=== PATIENT | female | born 1970 | race Caucasian/White ===

== ENCOUNTER 2023-10-08 18:48 | Emergency (ER) | payer OTHER, SELFPAY ==
[2023-10-08 18:50] VITALS: BP 155/91; PULSE 100; RESP 20; TEMP 36.6; O2SAT 99
--- NOTE | 2023-10-08 19:04 | PC.NURSE ---
On 10/08/23, the student, Rowena Shah, provided care and completed [facility] documentation on this patient. I have reviewed the student's documentation and agree with the findings.
[2023-10-08] MEDS: KETOROLAC (*BKC) 60 MG/2 ML VIAL IM (19:30)
--- NOTE | 2023-10-08 20:01 | PC.NURSE ---
Pt ambulated to nursing station, stating that she needs to leave due to a family emergency and will check back in later. Pt ambulatory out of department
--- NOTE | 2023-10-08 20:10 | ED.UPPEXIN ---
HPI - Extremity Injury (Upper) General Chief Complaint: Extremity Injury, Upper Stated Complaint: R & l wrist injury Time Seen by Provider: 10/08/23 19:10 Source: patient Mode of arrival: ambulatory Limitations: no limitations History of Present Illness HPI narrative: This is a 52-year-old female who presents after she had a fall on her outstretched hands and causing pain in her bilateral wrists and right shoulder and clavicle. No other injuries no loss of consciousness no other neurological deficits. complaint: injury to: left, right and shoulder Onset (ago): hour(s) Other injuries: none Handedness: right Severity: moderate Severity scale (1-10): 6 Context: fall Related Data Home Medications Medication Instructions Recorded Confirmed Unable to Obtain Home Medications 10/08/23 10/08/23 Allergies Allergy/AdvReac Type Severity Reaction Status Date / Time meperidine Allergy Mild Hives / Verified 10/08/23 19:01 Red Face acetaminophen AdvReac Intermediate HIVES IV Verified 10/08/23 19:01 ONLY oxycodone AdvReac Intermediate HIVES IV Verified 10/08/23 19:01 ONLY Review of Systems Review of Systems: All systems reviewed & are unremarkable except as noted in HPI and below PMFSH Past Medical History Medical History Patient denies medical problems Exam Const: General: healthy appearing and no acute distress Nutritional Appearance: well nourished Orientation/consciousness: patient oriented x3 Limitations: no limitations Neck: Neck: normal visual inspection, no lymphadenopathy and no meningeal signs Chest: Chest palpation & inspection: normal inspection of the chest Resp: Effort & Inspection: normal respiratory effort Auscultation: clear to auscultation bilaterally Cardio: Rate: regular rate Rhythm: regular rhythm GI: GI Palp: Yes Soft to palpation Skin: General skin exam: normal color Rashes: no rashes Wounds: no wounds Neuro: General: patient oriented x3 and moves all extremities Cranial nerves: Yes Nystagmus not present Extrem: Other: bilateral wrist pain with movement and palpation along with right shoulder and clavicle pain Course Course Emergency Course: patient had x-rays ordered and Toradol was administered the patient did state that she had a family emergency and eloped and stated that she would be back at a later time. Vital Signs Vital signs: Vital Signs Temperature 36.6 C 10/08/23 18:50 Pulse Rate 100 10/08/23 18:50 Respiratory Rate 20 10/08/23 18:50 Blood Pressure 155/91 H 10/08/23 18:50 Pulse Oximetry 99 10/08/23 18:50 Oxygen Delivery Room Air 10/08/23 18:50 Temperature 36.6 C 10/08/23 18:50 Pulse Rate 100 10/08/23 18:50 Respiratory Rate 20 10/08/23 18:50 Blood Pressure 155/91 H 10/08/23 18:50 Pulse Oximetry 99 10/08/23 18:50 Oxygen Delivery Room Air 10/08/23 18:50 Critical Care Time Critical Care Time Critical Care Time: No Discharge Plan Discharge Clinical Impression: Sprain and strain of wrist Patient Disposition: Elopement After Seen by Prov Condition: Stable Prescriptions: No Action Unable to Obtain Home Medications Rx Instructions: patient is having changes in home medication. Follow-up/Referrals: Davis,VANI Fuentes [Primary Care Provider] - Time of Disposition: 08:49
== END 2023-10-08 20:04 | disposition left against medical advice (07) ==
LOC: CHSED 19:32
PROVIDERS: Emergency Provider Emergency Medicine; PCP Physician Assistant
DX: S63.509A Unspecified sprain of unspecified wrist, initial encounter (principal); S66.919A Strain of unspecified muscle, fascia and tendon at wrist and hand level, unspecified hand, initial encounter; W19.XXXA Unspecified fall, initial encounter
CPT/HCPCS: 96372; 99283; J1885